=== PATIENT | female | born 1990 | race American Indian/Alaskan Native ===

== ENCOUNTER 2021-03-08 23:04 | Emergency (ER) | payer SELFPAY ==
[2021-03-08 23:26] VITALS: BP 168/103
[2021-03-09] MEDS ORDERED: IBUPROFEN 600 MG TAB PO ONE (00:37)
[2021-03-09] MEDS ORDERED: LIDOCAINE (1%) 10 MG/1 ML VIAL 20 ML MDV INFILTRATI ONE (00:37)
[2021-03-09] MEDS ORDERED: SULFAMETHOXAZOLE/TRIMETHOPRIM 800/160MG DS TAB PO ONE (00:37)
[2021-03-09] MEDS ORDERED: oxyCODONE /ACETAMINOPHEN 5-325MG TAB PO ONE (00:37)
[2021-03-09] MEDS ORDERED: ONDANSETRON 4 MG ODT TAB PO ONE (00:38)
[2021-03-09] MEDS ORDERED: CLINDAMYCIN 150 MG CAP PO ONE (01:37)
--- NOTE | 2021-03-09 01:53 | Emergency Department Report ---
ED General Adult HPI - General Chief complaint: Skin/Abscess/Foreign Body Stated complaint: LT BREAST PAIN;LT ARM PAIN Time Seen by Provider: 03/09/21 00:28 Source: patient Mode of arrival: Ambulatory Limitations: No Limitations - History of Present Illness Initial comments: Patient is a 30-year-old -Malt[place] female with no past medical history p resents to the ED with complaint of acute onset persistent severe painful swollen erythematous maculopapular rash on the left breast for the last 2 weeks, worse in the last 2 days. Patient states that palpation of the area or any movement makes the pain worse. Patient states that she has been taking [id number] pain medications with no relief. Patient denies traumatic injury, nausea, vomiting, fever, chills, and dizziness, chest pain or shortness of breath, abdominal pain, neck pain, numbness and tingling or weakness of upper and lower extremities bilaterally or change in vision. MD Complaint: left breast pain; swollen erythematous rash on left breast -: Sudden, week(s) (2) Location: chest (Left breast) Radiation: non-radiation Severity scale (0 -10): 8 Quality: aching, sharp Consistency: constant Improves with: none Worsens with: movement, other (Palpation) Associated Symptoms: denies other symptoms, rash (Swollen erythematous maculopapular painful rash on left breast). denies: confusion, chest pain, cough, diaphoresis, fever/chills, headaches, loss of appetite, malaise, nausea/vomiting, seizure, shortness of breath, syncope, weakness Treatments Prior to Arrival: NSAID - Related Data Previous Rx's Medication Instructions Recorded Last Taken Type Clindamycin [Clindamycin CAP] 300 mg PO Q8HR #60 capsule 03/09/21 Unknown Rx Ibuprofen [Motrin] 800 mg PO Q8HR PRN #30 tablet 03/09/21 Unknown Rx Ondansetron [Zofran Odt] 4 mg PO Q8HR PRN #15 tab.rapdis 03/09/21 Unknown Rx Sulfamethoxazole/Trimethoprim 1 each PO Q12H #20 tablet 03/09/21 Unknown Rx [Bactrim DS TAB] traMADoL [Ultram] 50 mg PO Q6HR PRN #12 tablet 03/09/21 Unknown Rx Allergies Allergy/AdvReac Type Severity Reaction Status Date / Time codeine Allergy Swelling Verified 03/08/21 23:21 ED Review of Systems ROS: Stated complaint: LT BREAST PAIN;LT ARM PAIN Other details as noted in HPI Constitutional: denies: chills, fever Eyes: denies: eye pain, eye discharge, vision change ENT: denies: ear pain, throat pain Respiratory: denies: cough, shortness of breath, wheezing Cardiovascular: denies: chest pain, palpitations Endocrine: no symptoms reported Gastrointestinal: denies: abdominal pain, nausea, diarrhea Genitourinary: denies: urgency, dysuria, discharge Musculoskeletal: denies: back pain, joint swelling, arthralgia Skin: rash (Swollen, severely painful erythematous maculopapular rash on left breast), change in color. denies: lesions Neurological: denies: headache, weakness, paresthesias Psychiatric: denies: anxiety, depression Hematological/Lymphatic: denies: easy bleeding, easy bruising ED Past Medical Hx - Past Medical History Previous Medical History?: Yes Additional medical history: preeclampsia - Social History Smoking Status: Never Smoker - Medications Home Medications: Home Medications Medication Instructions Recorded Confirmed Last Taken Type Clindamycin [Clindamycin CAP] 300 mg PO Q8HR #60 capsule 03/09/21 Unknown Rx Ibuprofen [Motrin] 800 mg PO Q8HR PRN #30 tablet 03/09/21 Unknown Rx Ondansetron [Zofran Odt] 4 mg PO Q8HR PRN #15 tab.rapdis 03/09/21 Unknown Rx Sulfamethoxazole/Trimethoprim 1 each PO Q12H #20 tablet 03/09/21 Unknown Rx [Bactrim DS TAB] traMADoL [Ultram] 50 mg PO Q6HR PRN #12 tablet 03/09/21 Unknown Rx ED Physical Exam - General Limitations: No Limitations General appearance: alert, in no apparent distress - Head Head exam: Present: atraumatic, normocephalic, normal inspection - Eye Eye exam: Present: normal appearance, PERRL, EOMI Pupils: Present: normal accommodation - ENT ENT exam: Present: normal exam, normal orophraynx, mucous membranes moist, TM's normal bilaterally, normal external ear exam - Neck Neck exam: Present: normal inspection, full ROM - Respiratory Respiratory exam: Present: normal lung sounds bilaterally. Absent: respiratory distress, wheezes, rales, rhonchi, stridor, chest wall tenderness, accessory muscle use, prolonged expiratory, other - Cardiovascular Cardiovascular Exam: Present: regular rate, normal rhythm, normal heart sounds. Absent: systolic murmur, diastolic murmur, rubs, gallop - GI/Abdominal GI/Abdominal exam: Present: soft, normal bowel sounds. Absent: tenderness, guarding, rebound, hyperactive bowel sounds, hypoactive bowel sounds, organomegaly - Extremities Exam Extremities exam: Present: normal inspection, full ROM, normal capillary refill - Back Exam Back exam: Present: normal inspection, full ROM. Absent: tenderness, CVA tenderness (R), CVA tenderness (L), muscle spasm, paraspinal tenderness, vertebral tenderness - Neurological Exam Neurological exam: Present: alert, oriented X3, CN II-XII intact, normal gait, reflexes normal - Psychiatric Psychiatric exam: Present: normal affect, normal mood - Skin Skin exam: Present: warm, dry, intact, normal color, rash (Swollen, erythematous maculopapular fluctuant severely tender rash on left breast areola), erythema. Absent: petechiae, abrasion, ecchymosis, other ED Course Vital Signs 03/08/21 23:22 Temperature 99.2 F Pulse Rate 91 H Respiratory 18 Rate Blood Pressure 168/103 O2 Sat by Pulse 98 Oximetry - I & D Left Breast Type of Procedure: Simple (Left breast areola) Site: Left breast areola Blade Size: 21-gauge needle on a 10 cc syringe I & D Procedure: betadine prep, sterile drapes applied, sterile dressing applied, gauze wick placed Progress: The area was cleaned with normal saline and Betadine, a total of 5 cc of lidocaine 1% solution was infiltrated into the wound. The wound was then aspirated with a 21-gauge needle on a 10 cc syringe. Copious thick purulent discharge was aspirated from the wound. The wound was then debrided extensively with normal saline and dressed appropriately. Patient tolerated the procedure well. ED Medical Decision Making - Medical Decision Making This is a 30-year-old -[place] female with no past medical history presents to the ED with complaint of acute onset persistent severe painful swollen erythematous maculopapular rash on the left breast for the last 2 weeks, worse in the last 2 days. Patient states that palpation of the area or any movement makes the pain worse. Patient states that she has been taking [id number] pain medications with no relief. In the ED, patient is alert and oriented x3 and is not in any distress but appears to be in significant pain. Patient was treated for pain in the ED and also given initial oral antibiotics in the ED. The area was cleaned with normal saline and Betadine, a total of 5 cc of lidocaine 1% solution was infiltrated into the wound. The wound was then aspirated with a 21-gauge needle on a 10 cc syringe. Copious thick purulent discharge was aspirated from the wound. The wound was then debrided extensively with normal saline and dressed appropriately. Patient tolerated the procedure well. On reevaluation, patient's pain is well controlled with medications. Patient was therefore discharged home on pain medications and oral antibiotics and was advised to return to the ED in 2 days for wound recheck or return to the ED immediately if symptoms get worse. Patient was otherwise advised to follow-up with her primary care physician in 7 to 10 days for reevaluation. - Differential Diagnosis Cellulitis; left breast abscess; cutaneous abscess; mastitis Critical care attestation.: If time is entered above; I have spent that time in minutes in the direct care of this critically ill patient, excluding procedure time. ED Disposition Clinical Impression: Nonpuerperal abscess of left breast, Cellulitis of left breast, Acute mastitis of left breast Disposition: DC-01 TO HOME OR SELFCARE Is pt being admited?: No Does the pt Need Aspirin: No Condition: Stable Instructions: Mastitis, [id number], Skin Abscess, [id number], Cellulitis, Adult, [id number] Additional Instructions: Take medication with food, drink plenty of fluids and follow-up with your primary care physician in 7 to 10 days for reevaluation. Return to the ED in 2 days for wound recheck. Otherwise return to the ED immediately if symptoms get worse. Prescriptions: Sulfamethoxazole/Trimethoprim [Bactrim DS TAB] 1 each PO Q12H #20 tablet Clindamycin [Clindamycin CAP] 300 mg PO Q8HR #60 capsule Ibuprofen [Motrin] 800 mg PO Q8HR PRN #30 tablet PRN Reason: Pain , Severe (7-10) traMADoL [Ultram] 50 mg PO Q6HR PRN #12 tablet PRN Reason: Pain Ondansetron [Zofran Odt] 4 mg PO Q8HR PRN #15 tab.rapdis PRN Reason: Nausea Referrals: [facility] [Provider Group] - 3-5 Days Forms: Work/School Release Form(ED) Time of Disposition: 01:56 Print Language: KOREAN
== END 2021-03-09 02:16 | disposition home or self-care (01) ==
LOC: ED 23:04
DX: N61.1 Abscess of the breast and nipple (principal); Z88.5 Allergy status to narcotic agent; Z79.899 Other long term (current) drug therapy
CPT/HCPCS: 87116; 99283; Q0162